=== PATIENT | female | born 2000 | race Caucasian/White ===

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

== ENCOUNTER 2021-04-11 06:41 | Emergency (ER) | payer MEDICAID, OTHER ==
[~2021-04-11] VITALS: Ht 172.7 cm; Wt 87.8 kg
[2021-04-11 06:47] VITALS: BP 101/64
[2021-04-11 09:33] LABS: BASOPHILS % (AUTO) 1 % (0-1); EOSINOPHILS % (AUTO) 1 % (1-7); LYMPHOCYTES % (AUTO) 32 % (22-44); MEAN CORPUSCULAR HEMOGLOBIN 22.2 pg (27.0-34.8); MEAN CORPUSCULAR HGB CONC 31.8 g/dL (32.4-35.8); MEAN PLATELET VOLUME 9.6 fL (7.4-10.4); MONOCYTES % (AUTO) 6 % (2-9); NEUTROPHILS % (AUTO) 59 % (42-75); PLATELET COUNT 316 x10^3/uL (130-400); RED BLOOD COUNT 4.93 x10^6/uL (3.82-5.3); RED CELL DISTRIBUTION WIDTH 17.5 % (9.6-15.2)
[2021-04-11 09:46] LABS: CHLORIDE 110 mmol/L (98-107)
[2021-04-11 09:55] LABS: ALBUMIN 3.7 g/dL (3.4-5.0); ANION GAP 5 mmol/L (5-15); CALCIUM 9.3 mg/dL (8.5-10.1); CREATININE 0.68 mg/dL (0.55-1.02)
--- NOTE | 2021-04-11 10:26 | NUR ---
real estate leasing manager note: Pt to room from lobby.
--- NOTE | 2021-04-11 10:44 | NUR ---
PT HERE FOR C/O LOWER ABD PAIN AND HEAVY MENSTRUAL PERIOD LMP 04/09/21. PT REPORTS HX SAME, OUT OF [facility] AT THIS TIME, HAS NOT FOLLOWED UP WITH BACCARAT MANAGER.
== END 2021-04-11 11:08 | disposition left against medical advice (07) ==
LOC: ED 08:10
DX: N94.4 Primary dysmenorrhea (principal)
CPT/HCPCS: 36415; 80048; 82040; 84703; 85025; 99283